=== PATIENT | male | born 1950 | race Caucasian/White ===

== ENCOUNTER → 2018-02-12 | Outpatient (CLI) | payer MEDICARE ==
[~2018-02-12] MED LIST: ASPIR 8181 MG PO; CARDIZEM CD240 MG PO; FENOFIBRATE134 MG PO; HYTRIN 5 M5 MG/1 CAP PO; LEVOTHYROXINE 0.1 MG PO; MATZIM LA240 MG PO; PLAVIX 75 MG TA75 M1 PO; PRAVACHOL20 MG PO; VERAPAMIL E.R240 M1 PO
== END ==
LOC: M.LAB 12:12
DX: R91.8 Other nonspecific abnormal finding of lung field (principal)

== ENCOUNTER 2018-02-14 15:08 | Emergency (ER) | payer MEDICARE ==
[~2018-02-14] VITALS: Ht 188 cm; Wt 72.6 kg
[~2018-02-14 15:08] MED LIST changes: -PLAVIX 75 MG TA75 M1 PO; -VERAPAMIL E.R240 M1 PO
[2018-02-14] MEDS ORDERED: PLAVIX 75 MG TA75 M1 PO (15:26)
[2018-02-14] MEDS ORDERED: VERAPAMIL E.R240 M1 PO (15:26)
[2018-02-14 16:29] VITALS: BP 157/99
== END 2018-02-14 16:30 | disposition home or self-care (01) ==
LOC: M.ERS 15:08
DX: S92.422A Displaced fracture of distal phalanx of left great toe, initial encounter for closed fracture (principal); S92.532A Displaced fracture of distal phalanx of left lesser toe(s), initial encounter for closed fracture; S92.412A Displaced fracture of proximal phalanx of left great toe, initial encounter for closed fracture; S92.512A Displaced fracture of proximal phalanx of left lesser toe(s), initial encounter for closed fracture; Z85.46 Personal history of malignant neoplasm of prostate; W20.8XXA Other cause of strike by thrown, projected or falling object, initial encounter; Y93.89 Activity, other specified; Y92.89 Other specified places as the place of occurrence of the external cause; Y99.8 Other external cause status